=== PATIENT | female | born 1960 | race American Indian/Alaskan Native ===

== ENCOUNTER 2024-07-16 11:55 | Day surgery (SDC) | payer BC, SELFPAY ==
[2024-07-16] VITALS (12 sets, daily range): BP systolic 115–158; BP diastolic 60–81; PULSE 68–83; RESP 11–20; TEMP 36.2–36.4; O2SAT 96–100; BMI 30.6
[2024-07-16] MEDS: RINGERS LACTATED 1000 ML 1,000 ML 100 ML IV (13:25)
[2024-07-16] MEDS: fentaNYL CIT INJ 50 mCg/ML AMP 2ML (ASD USE ONLY) IV (13:25)
[2024-07-16] MEDS: MIDAZOLAM INJ 1 MG/ML VIAL 2 ML (ASD USE ONLY) 2 MG IV (13:36)
== END 2024-07-16 14:25 | disposition home or self-care (01) ==
PROVIDERS: PCP Internal Medicine; Referring Provider Surgery; Visit Provider Surgery
PROC: 0DBE8ZX Excision of Large Intestine, Via Natural or Artificial Opening Endoscopic, Diagnostic (ICD-10-PCS; CPT 45380; principal; 2024-07-16 13:00)
DX: Z12.11 Encounter for screening for malignant neoplasm of colon (principal); Z80.0 Family history of malignant neoplasm of digestive organs; I10 Essential (primary) hypertension
CPT/HCPCS: 45378; J2250; J3010; J7120

== ENCOUNTER → 2024-08-21 | Outpatient (CLI) | payer BC, SELFPAY ==
[2024-08-21 09:16] LABS: Collection Type, Urine Clean Catch
[2024-08-21 09:41] LABS: Basophils % (Auto) 0 % (0-2.5); Eosinophils # (Auto) 0.1 Thou/mm3 (0.0-0.5); Eosinophils % (Auto) 1 % (0-10); Hematocrit 42.8 % (36.0-46.0); Hemoglobin 14.4 g/dL (12.0-16.0); Immature Granulocytes % (Auto) 0 % (0-0); Immature Granulocytes Auto 0.02 Thou/mm3 (0.00-0.00); Lymphocytes # (Auto) 2.1 Thou/mm3 (1.0-4.8); Lymphocytes % (Auto) 32 % (10-50); Mean Corpuscular HGB Conc 33.6 g/dl (31.0-37.0); Mean Corpuscular Hemoglobin 29.5 pg (25.0-35.0); Mean Corpuscular Volume 88 fL (80-100); Monocytes # (Auto) 0.3 Thou/mm3 (0.0-0.8); Monocytes % (Auto) 4 % (0-12); Neutrophils # (Auto) 4.1 Thou/mm3 (1.8-7.7); Neutrophils % (Auto) 62 % (37-80); Nucleated Red Blood Cell % 0 /100 WBC (0); Platelet Count 371 Thou/mm3 (140-440); RDW Standard Deviation 43.7 fL (36.4-46.3); Red Blood Count 4.88 Miln/mm3 (4.00-5.20); White Blood Count 6.5 Thou/mm3 (3.6-11.0)
[2024-08-21 09:53] LABS: Glucose Estimated Average 105 mg/dL (80-131); Hemoglobin A1C 5.3 % Hgb (4.8-6.0)
[2024-08-21 09:55] LABS: Bacteria,Urine Rare; Bilirubin,Urine Negative (Negative); Blood,Urine Negative (Negative); Clarity,Urine Clear (Clear/Hazy); Color,Urine Yellow (Lt Yel-Yel); Glucose, Urine Negative (Negative); Ketones,Urine Negative (Negative); Leukocyte Esterase,Urine Negative (Negative); Nitrite,Urine Negative (Negative); Protein,Urine Negative (Neg - Trace); RBC,Urine 2 /hpf (0-3); Specific Gravity,Urine 1.027 (1.001-1.035); Squamous Epithelial Cell,Urine 2 /hpf (0-5); WBC,Urine 1 /hpf (0-5)
[2024-08-21 09:56] LABS: Vitamin B12 472 pg/mL (211-911); Vitamin D 25 Hydroxy Total 53.8 ng/mL (7.3-40.2)
[2024-08-21 10:01] LABS: Alanine Aminotransferase 27 U/L (10-49); Albumin, Serum 4.4 gm/dL (3.4-4.8); Albumin/Globulin Ratio 1.8 (1.2-2.2); Alkaline Phosphatase 104 U/L (46-116); Anion Gap 9 (7-16); Aspartate Amino Transferase 23 U/L (0-34); BUN/Creatinine Ratio 21 Ratio (12-20); Bilirubin,Total 0.7 mg/dL (0.3-1.2); Blood Urea Nitrogen 17 mg/dL (9-23); Calcium 9.4 mg/dL (8.3-10.6); Calcium (Corrected) 9.4 mg/dL (8.5-10.1); Carbon Dioxide 27.1 mMol/L (20.0-31.0); Cardiac Risk Estimate 3.2 RATIO (3.7-5.6); Chloride 108 mMol/L (98-107); Cholesterol 209 mg/dL (132-200); Creatinine (Component) 0.8 mg/dL (0.6-1.3); Globulin 2.4 gm/dL (2.3-3.5); Glucose 101 mg/dL (74-106); HDL Cholesterol 65 mg/dL (40-60); LDL Cholesterol,Calculated 116 mg/dL (0-130); Osmolality,Calculated 288 (275-295); Potassium 4.6 mMol/L (3.4-5.1); Sodium 144 mMol/L (136-145); Thyroid Stimulating Hormone 3.87 uIU/mL (0.55-4.78); Total Protein 6.8 gm/dL (5.7-8.2); Triglycerides 141 mg/dL (30-150); Uric Acid 3.3 mg/dL (3.1-7.8); eGFR > 60 See Note
== END | disposition home or self-care (01) ==
PROVIDERS: PCP Internal Medicine; Referring Provider Internal Medicine; Visit Provider Internal Medicine
DX: Z00.00 Encounter for general adult medical examination without abnormal findings (principal)
CPT/HCPCS: 36415; 80053; 80061; 81001; 82306; 82607; 83036; 84443; 84550; 85025

== ENCOUNTER → 2024-11-12 | Outpatient (CLI) | payer BC, SELFPAY ==
--- NOTE | 2024-11-12 15:18 | XR_ITS ---
Examination: Hand, right 3 views Technique: Hand AP, oblique, lateral 3 views Date and time of exam: November 12, 2024 1521 hours INDICATIONS: Palpable mass on the tip the third digit noticed beginning 3 months ago. FINDINGS: Moderate osteopenia. No fracture. No opaque foreign body IMPRESSION: No fracture or opaque foreign body No bony exostosis
--- NOTE | 2024-11-12 15:18 | XR_ITS ---
Examination: Wrist, right 3 views Technique: Wrist AP, oblique, lateral 3 views Date and time of exam: January 12, 2025 1521 hours INDICATIONS: Right wrist pain this week FINDINGS: Moderate osteopenia Mild narrowing radiocarpal intercarpal carpometacarpal joints IMPRESSION: Mild narrowing joints of the wrist
== END | disposition home or self-care (01) ==
LOC: CDIM 15:10
PROVIDERS: PCP Internal Medicine; Referring Provider Nurse Practitioner Gerontology; Visit Provider Nurse Practitioner Gerontology
DX: M79.641 Pain in right hand (principal); M25.831 Other specified joint disorders, right wrist
CPT/HCPCS: 73110; 73130

== ENCOUNTER 2025-03-21 23:34 | Emergency (ER) | payer BC, SELFPAY ==
[2025-03-21 23:38] VITALS: BP 154/65; PULSE 99; RESP 20; TEMP 36.7; O2SAT 96
--- NOTE | 2025-03-22 00:15 | XR_ITS ---
Examination: CT maxillofacial, without intravenous contrast. 2-D sagittal reconstructions. 3-D reconstructions. Date and time of exam: March 22, 2025, 0028 hours INDICATIONS: Patient slipped and fell today with injury to the face, facial pain CTDI: vol (mGy): 26.20 DLP: (mGycm): 520 Technique: Multiple axial images of maxillofacial region, 3.0 mm slice thickness. 2-D sagittal and coronal reconstructions. 3-D reconstructions. Low dose protocols were performed. One or more of the following dose reduction techniques were used; automated exposure control, adjustment of the mA and/or KV according to patient size, use of iterative reconstruction technique. Findings: Frontal bone frontal sinuses intact with soft tissue left frontal defect Small defect medial wall left orbit which may represent a small displaced fracture Old nasal bone fractures Maxilla and mandible intact IMPRESSION: Old nasal bone fractures Small defect medial wall left orbit which may represent a small displaced fracture, the appearance should be clinically correlated No blowout fracture of either orbit identified.
--- NOTE | 2025-03-22 00:15 | XR_ITS ---
Examination: CT brain head without contrast. 2-D sagittal coronal reconstructions Date and time of exam: March 22, 2025, 0027 hours INDICATIONS: Patient slipped and fell today, head pain CTDI: vol (mGy): 46.60 DLP: (mGycm): 840 Technique: Multiple CT axial sections of the brain have been obtained, 5 mm slice thickness. Contrast has not been administered. 2-D sagittal, coronal reconstructions have been obtained Low dose protocols were performed. One or more of the following dose reduction techniques were used; automated exposure control, adjustment of the mA and/or KV according to patient size, use of iterative reconstruction technique. Findings: No significant ventricular enlargement. Intra-axial or extra-axial hemorrhage density is not seen. No mass effect or midline shift Basal cisterns are not remarkable. Fourth ventricle is midline. Cranial vault intact. Impression: Negative for acute hemorrhage, mass effect or midline shift
--- NOTE | 2025-03-22 00:16 | PD.EDRME ---
Rapid Medical Screening Exam E Arrival date/time: 03/21/25 23:34 This is a case of 64-year-old female with no medical history came in in the emergency room due to facial and head injury patient fell hit his face on the floor sustaining a laceration in the left periorbital area no loss of consciousness Chief Complaint: Fall Time Seen by Provider: 03/21/25 23:47 Vital signs: Vital Signs Temperature 98.1 F 03/21/25 23:38 Pulse Rate 99 03/21/25 23:38 Respiratory Rate 20 03/21/25 23:38 Blood Pressure 154/65 H 03/21/25 23:38 Pulse Oximetry (%) 96 03/21/25 23:38 Oxygen Delivery Method Room Air 03/21/25 23:38 Exam: Patient is awake alert oriented not in distress nontoxic looking patient noted to have a 5 cm laceration in the left periorbital area Clinical Impression: Facial injury
--- NOTE | 2025-03-22 01:22 | PRELIM_ITS ---
CT scan of the head. March 22, 2025 0027 hours Clinical History: Injury. Technique: Helical axial sections with sagittal and coronal reformats of the head were obtained without contrast. Iterative reconstruction technique was employed to reduce patient radiation exposure. Radiation Dose: Total exam DLP 844 mGy/cm. Comparison: None available at the time of this report. Findings: Bilateral basal ganglia calcifications. There is no evidence of intracranial hemorrhage, mass effect or midline shift. There are periventricular white matter hypodensities, compatible with chronic small vessel ischemia. There is volume loss. The calvarium is intact. The mastoid air cells and the visualized paranasal sinuses are clear. Impression: No evidence of intracranial hemorrhage, midline shift or calvarial fracture. Periventricular chronic small vessel ischemia and volume loss. Report Electronically Signed By: Keith Nolsaco 03/22/2025 1:20:59 AM [EST]
--- NOTE | 2025-03-22 01:37 | PRELIM_ITS ---
CT maxillofacial without intravenous contrast (axial sections with sagittal and coronal reformats). March 22, 2025 at 0028 hours Clinical History: Injury. Comparison: No prior study is available for comparison. Findings: Age-indeterminate bilateral nasal bone fractures. Acute mild displaced fracture of the left medial orbital wall (coronal image 34 of 101). The maxillary sinus and orbital rodriguez are intact. No fluid levels are seen. No evidence of intraorbital hematoma, proptosis, globe injury or radiodense foreign body. The zygomatic arches and mandible are intact. Small left periorbital hematoma. Impression: Age-indeterminate bilateral nasal bone fractures. Please, correlate clinically. Acute mild displaced fracture of the left medial orbital wall (coronal image 34 of 101). Report Electronically Signed By: Keith Nolasco 03/22/2025 1:37:13 AM [EST]
--- NOTE | 2025-03-22 02:10 | PD.EDFALL ---
ED Fall Injury RME/HPI General Chief Complaint: Fall Stated Complaint: FELL, LAC TO HEAD AND FACE Time Seen by Provider: 03/21/25 23:47 Arrival date/time: 03/21/25 23:34 RME / HPI RME / HPI Narrative: 03/21/25 23:34 This is a case of 64-year-old female with no medical history came in in the emergency room due to facial and head injury patient fell hit his face on the floor sustaining a laceration in the left periorbital area no loss of consciousness DR. ARIZMENDI MAIN ED EVALUATION: Patient suffered a ground-level fall left periorbital region laceration to the left upper lid. No definitive LOC. Patient has full recollection of the event and presents for evaluation. Denies visual disturbances, no escalating headaches, nausea, or vomiting. No reported neck pain or UE/LE radiculopathy. Patient does acknowledge drinking earlier. PMH: HTN PSH: Non-contributory Allergies: NKDA Social: Occasional alcohol consumption, No tobacco or illicit drug abuse Exam: Patient is awake alert oriented not in distress nontoxic looking patient noted to have a 5 cm laceration in the left periorbital area Impression: Facial injury Related Data Previous Rx's ?Medication ?Instructions ?Recorded bacitracin 500 unit/gram topical 1 applic topical TID #14 grams 03/22/25 ointment naproxen 250 mg tablet 250 mg PO BID PRN pain #10 tabs 03/22/25 Allergies Allergy/AdvReac Type Severity Reaction Status Date / Time No Known Drug Allergies Allergy Verified 07/16/24 12:34 Review of Systems Review of Systems Systems Reviewed: All systems reviewed, normal except as documented Past Medical History Past Medical History CARDIAC: Positive Cardiac Disorders and Hypertension ED Exam Narrative Physical exam: GEN. APPEARANCE: The patient is alert awake oriented X-3 under no distress, lying down comfortably, does not look ill/toxic. Patient has good eye contact. Patient is cooperative. VITALS: All vitals were reviewed and the pulse ox is 96%, which is normal according to my interpretation HEENT: Normocephalic, semi-lunar full thickness laceration of left upper lid just below the brow extending about the entire lid. Pupils are equal and reactive. Extraoccular muscle intact, no signs of entrapment, 1+ periorbital edema/ecchymosis, no orbital rim step-off. Oral mucosa is moist. NECK: Supple, nontender, no meningismus, no JVD. There is no thyromegaly and no lymphadenopathy. CHEST: Nontender on palpation no deformity and no crepitus. CARDIOVASCULAR: Heart regular rhythm, no murmur or gallop rub or extra beats. LUNGS: Clear to auscultation bilaterally with symmetrical chest rise. No laboring tachypnea or wheezing. No intercostal subcostal retraction. No rales and no rhonchi. ABDOMEN: Soft, flat, nontender to palpation, no guarding or rebound tenderness. There are no abnormal masses palpated. No pulsatile masses or bruits. Active and normal bowel sounds. EXTREMITIES: Normal inspection and palpation. No edema. No cyanosis. Patient is able to move all 4 extremities well SKIN: Warm and dry, no rashes noted. MUSCULOSKELETAL: No lumbar or midline bony tenderness. There is no CVA tenderness. No paraspinal muscle spasm or tenderness. NEURO: Cranial nerves II through XII grossly intact. There are no focal neurologic deficits noted. GCS is 15 PSYCHIATRIC: Patient is in normal mood and affect, cooperative. LYMPHATICS: No major lymphadenopathy noted. Course Quality Measures none Orders Category Date Time Status CT facial bones wo con Stat Exams 03/22/25 00:[address] head/brain wo con Stat Exams 03/22/25 00:15 Taken Bacitracin Oint pkt Med 03/22/25 02:52 Discontinued 1 gm TOP X1 ONE Lidocaine 1% Vial 20 ml [Xylocaine 1% 20 ML] Med 03/22/25 02:32 Discontinued 20 ml INFL X1 ONE TET,DIP/PERT AC (Adult)-Tdap [Boostrix Adult (Tdap) Med 03/22/25 02:15 Discontinued Vacc] 0.5 ml IMI .ONCE ONE Vital Signs Vital signs: Vital Signs Temperature 98.1 F 03/21/25 23:38 Pulse Rate 99 03/21/25 23:38 Respiratory Rate 20 03/21/25 23:38 Blood Pressure 154/65 H 03/21/25 23:38 Pulse Oximetry (%) 96 03/21/25 23:38 Oxygen Delivery Method Room Air 03/21/25 23:38 PROCEDURES: Laceration Laceration 1: Site: face Side (If applicable): left Size (cm): 4 Description: linear Depth: simple, single layer Local Anesthetic: lidocaine 1% Amount of anesthesia used (mL): 3 Pre-repair: wound explored, deep structures intact and wound margins revised Skin layer closed with: other (Prelone) Suture size (cm): 5-0 Number of sutures: 8 Technique: horizontal mattress Fall MDM Narrative MDM Narrative:: Scribe Attestation: Anali Peraza, am scribing for and in the presence of Dr. Arizmendi. Provider Notation: Although this document has been carefully reviewed, there may still be some phonetic and other typographical errors. These errors are purely grammatical due to imperfections in the software program and should not be construed in any way to compromise the substance of the patient's medical care during this visit. Patient suffered a ground-level fall left periorbital region laceration to the left upper lid. No definitive LOC. Patient has full recollection of the event and presents for evaluation. Please see PE findings. Patient underwent lac repair. Tetanus was updated and was observed for several hours and remained stable throughout ED course. CT scan of the head was unremarkable, although facial bones CT did demonstrate evidence of mildly displaced fracture of the medial periorbital wall. Final diagnoses include ground-level fall, left upper lid laceration post repair, left periorbital hematoma, orbital fracture. Patient data External records reviewed:: [facility] previous records (No prior ED records available for review.) Clinical information provided by:: patient Social determinants that could affect healthcare access:: alcohol use Patient has the following chronic illnesses:: HTN How is presenting disease/condition affected by chronic disease/condition?: exacerbated by Evaluation data The following diagnostics were reviewed and interpreted by me:: radiology exam(s) Lab and/or radiology exams considered but not ordered:: None Interpretation Summary: RADIOLOGY Head/Brain CT: Findings: Bilateral basal ganglia calcifications. There is no evidence of intracranial hemorrhage, mass effect or midline shift. There are periventricular white matter hypodensities, compatible with chronic small vessel ischemia. There is volume loss. The calvarium is intact. The mastoid air cells and the visualized paranasal sinuses are clear. Impression: No evidence of intracranial hemorrhage, midline shift or calvarial fracture. Periventricular chronic small vessel ischemia and volume loss. Facial Bones CT: Findings: Age-indeterminate bilateral nasal bone fractures. Acute mild displaced fracture of the left medial orbital wall (coronal image 34 of 101). The maxillary sinus and orbital rodriguez are intact. No fluid levels are seen. No evidence of intraorbital hematoma, proptosis, globe injury or radiodense foreign body. The zygomatic arches and mandible are intact. Small left periorbital hematoma. Impression: Age-indeterminate bilateral nasal bone fractures. Please, correlate clinically. Acute mild displaced fracture of the left medial orbital wall (coronal image 34 of 101). Medications / Prescriptions Medications or Prescriptions considered but not ordered:: None Medication administrations:: Medication Administration History Discontinued Medications Bacitracin (Bacitracin Oint 1 Gm Packet) 1 gm TOP X1 ONE Stop: 03/22/25 02:53 Last Admin: 03/22/25 02:55 Dose: 1 gm Documented By: GAURAV Diphtheria/Tetanus/Acell Pertussis (Diphth,Pertuss(Acell),Tet Vac 0.5 Ml Syr- Adult) 0.5 ml IMi .ONCE ONE Stop: 03/22/25 02:16 Last Admin: 03/22/25 02:53 Dose: 0.5 ml Documented By: GAURAV Lidocaine HCl (Lidocaine Hcl 1% 20 Ml Vial) 20 ml INFL X1 ONE Stop: 03/22/25 02:33 Last Admin: 03/22/25 02:54 Dose: 20 ml Documented By: GAURAV See above if any Consultations Consultation(s) initiated? (list below): No Diagnosis Fall Differential Diagnosis: syncope and other (Alcohol intoxication, Facial bone fracture, subdural hematoma, Concussion) Most likely diagnosis given after review of the tests above:: Ground-level fall, Left upper lid laceration post-repair, left periorbital hematoma, orbital fracture. Admission Indicated Admission indicated?: not indicated Explain why admission is indicated or not indicated:: Patient does not meet admission criteria Admission Request Was there a request for admission?: No Disposition Plan Disposition Plan: Discharge Discharge Attestation Discharge Attestation: The patient and all family members were given an opportunity to ask questions and understood the discharge instructions. Discharge instructions specifically effects, indications for sooner follow up or return to the emergency department, and the expected course of current diagnosis. Patient condition: Stable Discharge Plan Plan Patient Disposition: HOME (Self Care) Discharge Disposition comment: Stable Prescriptions/Referrals Prescriptions/Med Rec: New naproxen 250 mg tablet 250 mg PO BID PRN (Reason: pain) Qty: 10 0RF bacitracin 500 unit/gram ointment 1 applic topical TID Qty: 14 0RF Referrals: Raul Real MD [Primary Care Provider, Nephrology] - In 1 week Problem List Clinical Impression: Periorbital hematoma of left eye, Orbital wall fracture, Eyelid laceration, left, Ground-level fall Impression comment: Periorbital hematoma/orbital wall fracture/eyelid laceration Patient/Caregiver Discharge Instructions Discharge Activity: activity as tolerated Other Activity Instructions:: Head of bed elevation ice compresses Education Materials: ED Facial Fracture, ED Laceration, Face: Stitches or Tape Additional Instructions: Maintain head of bed elevation, ice compresses, topical bacitracin twice daily. Naprosyn as needed for pain/swelling. Sutures out in 6 days. Return if worsening. Print Language: Pashto Stand Alone Forms: Jasmyn Award Info., Patient Portal Info Letter
[2025-03-22] MEDS: DIPHTH,PERTUSS(ACELL),TET VAC 0.5 ML SYR- ADULT IMi (02:53)
[2025-03-22] MEDS: LIDOCAINE HCL 1% 20 ML VIAL INFL (02:54)
[2025-03-22] MEDS: BACITRACIN OINT 1 GM PACKET TOP (02:55)
[2025-03-22 03:06] VITALS: BP 148/77; PULSE 79; RESP 20; O2SAT 96
== END 2025-03-22 03:10 | disposition home or self-care (01) ==
PROVIDERS: Emergency Provider Emergency Medicine; PCP Internal Medicine
DX: S01.112A Laceration without foreign body of left eyelid and periocular area, initial encounter (principal); S02.832A Fracture of medial orbital wall, left side, initial encounter for closed fracture; W18.30XA Fall on same level, unspecified, initial encounter; Z23 Encounter for immunization
CPT/HCPCS: 12013; 70450; 70486; 90471; 90715; 99283; J3490; A9270